=== PATIENT | male | born 1965 | race Caucasian/White ===

== ENCOUNTER 2018-12-20 09:36 | Day surgery (SDC) | payer BC, OTHER ==
[2018-12-18 11:12] VITALS: BMI 25.1
[~2018-12-20 09:36] MED LIST: LACTATED RINGERS 1,000 ML IV SCH
[2018-12-20 09:51] VITALS: RESP 18; TEMP 97.5
[2018-12-20] MEDS ORDERED: LIDOCAINE 1% 20 ML VIAL (10MG/ML) FOR IV START INTRADERMA ONE (09:51)
[2018-12-20] MEDS ORDERED: LACTATED RINGERS 1,000 ML IV ONE (09:51)
[2018-12-20] MEDS ORDERED: FAMOTIDINE 20 MG/2 ML VIAL IVP ONE (10:02)
[2018-12-20] MEDS ORDERED: PROPOFOL 10 MG/ML 20 ML VIAL IV ONE (10:56)
--- NOTE | 2018-12-20 11:04 | P.GSHP ---
History of Present Illness H&P Date: 12/20/18 Chief Complaint: Screening colonoscopy Is a 53-year-old male who presents today for screening colonoscopy. Patient previous history of diverticulosis. Past Medical History Past Medical History: No Reported History Additional Past Medical History / Comment(s): STATES BACK SPASMS., NIPPLES PIERCED. History of Any Multi-Drug Resistant Organisms: None Reported Past Surgical History: Orthopedic Surgery Additional Past Surgical History / Comment(s): ORIF RT ANKLE JAN 2015 Past Anesthesia/Blood Transfusion Reactions: No Reported Reaction Past Psychological History: No Psychological Hx Reported Smoking Status: Former smoker Past Alcohol Use History: Occasional Additional Past Alcohol Use History / Comment(s): QUIT SMOKING APPROX 1998 ,STARTED SMOKING 1979 Past Drug Use History: None Reported - Past Family History Brother(s) Family Medical History: Diabetes Mellitus Mother Family Medical History: Diabetes Mellitus Father Family Medical History: No Reported History Additional Family Medical History / Comment(s): . Medications and Allergies Home Medications Medication Instructions Recorded Confirmed Type Baclofen [Lioresal] 20 mg PO BID 12/18/18 12/18/18 History Celecoxib [CeleBREX] 200 mg PO DAILY 12/18/18 12/18/18 History Cyclobenzaprine [Flexeril] 10 mg PO HS 12/18/18 12/18/18 History Magnesium 400 mg PO DAILY 12/18/18 12/18/18 History Allergies Allergy/AdvReac Type Severity Reaction Status Date / Time No Known Allergies Allergy Verified 12/18/18 10:43 Surgical - Exam Vital Signs Temp Pulse Resp BP Pulse Ox 97.5 F L 72 18 148/91 98 12/20/18 09:50 12/20/18 09:50 12/20/18 09:50 12/20/18 09:50 12/20/18 09:50 - General well developed, well nourished, no distress - Eyes PERRL - ENT normal pinna - Neck no masses - Respiratory normal expansion - Cardiovascular Rhythm: regular - Abdomen Abdomen: soft, non tender Assessment and Plan Assessment: MrMadeleine diagnosis We'll perform screening colonoscopy.
--- NOTE | 2018-12-20 11:19 | P.OP ---
Date of Procedure: 12/20/18 Preoperative Diagnosis: Reading colonoscopy Postoperative Diagnosis: Diverticulosis Procedure(s) Performed: Colonoscopy Anesthesia: MAC Surgeon: Yehuda Duncan Pathology: none sent Condition: stable Disposition: PACU Operative Findings: The patient's placed on the endoscopy table in the lateral position and she received IV sedation. Digital rectal exam was performed which revealed no abnormalities. The flexible colonoscope was then placed patient anus passed rotator colon. The ileocecal valve was visualized. The cecum, ascending and transverse colon appeared normal. In the descending and; was mild diverticular changes. Scope was then brought back the rectum and this appeared normal. Scope was withdrawn for patient.
[2018-12-20 11:46] VITALS: BP 124/81; PULSE 70
== END 2018-12-20 12:22 | disposition home or self-care (01) ==
LOC: ORWHC2ENDO 09:36
PROVIDERS: ATTEND Surgery
DX: Z12.11 Encounter for screening for malignant neoplasm of colon (principal); K57.30 Diverticulosis of large intestine without perforation or abscess without bleeding; M62.830 Muscle spasm of back; Z87.891 Personal history of nicotine dependence; Z79.899 Other long term (current) drug therapy; Z83.3 Family history of diabetes mellitus
CPT/HCPCS: G0121; J2704

== ENCOUNTER 2022-09-04 18:19 | Emergency (ER) | payer BC ==
[2022-09-04 18:22] VITALS: BP 192/101; PULSE 73; RESP 16; TEMP 97.9
[2022-09-04] MEDS ORDERED: DIPH,PERTUS(ACELL)TETVAC-LF 0.5 ML VIAL IM ONE (18:38)
[2022-09-04] MEDS ORDERED: MORPHINE SULFATE 2 MG/ML SYRINGE IM ONE (18:38)
[2022-09-04] MEDS ORDERED: TRANEXAMIC ACID 1,000 MG/10 ML VIAL IRRIGATION ONE (18:41)
--- NOTE | 2022-09-04 19:03 | XR ---
EXAMINATION TYPE: XR hand complete LT DATE OF EXAM: 09/04/2022 6:52 PM INDICATION: Patient age:Male; 57 years old; Reason for study: L hand trauma; PHH. COMPARISON: None TECHNIQUE: Frontal, lateral and oblique views of the left hand were obtained. FINDINGS: The distal portion of the left second digit soft tissues is absent. Normal alignment of the visualized joints. No acute osseous pathology is identified. No radiopaque foreign body. IMPRESSION: 1. No acute osseous pathology. 2. Laceration of the left second digit distal aspect without evidence for fracture or radiopaque for eign body.
[2022-09-04] MEDS ORDERED: GELATIN SPONGE,ABSORB (LARGE) 1 EACH SPONGE TOPICAL STA (19:10)
--- NOTE | 2022-09-04 19:11 | ED ---
General Adult HPI - General Chief complaint: Wound/Laceration Stated complaint: lt hand finger laceration Time Seen by Provider: 09/04/22 18:30 Source: patient, RN notes reviewed Mode of arrival: ambulatory - History of Present Illness Initial comments: 57-year-old male with no significant past medical history presents the emergency department with a chief complaint of finger laceration. Patient reports that he was closing a Ziploc bag he and cut himself with a knife by accident left second digit. He is reporting increased pain and bleeding to the site. He denies any numbness, tingling, weakness to the area. He denies any anticoagulant use. She is not up-to-date on his tetanus vaccination. - Related Data Home Medications Medication Instructions Recorded Confirmed Baclofen [Lioresal] 20 mg PO BID 12/18/18 12/18/18 Celecoxib [CeleBREX] 200 mg PO DAILY 12/18/18 12/18/18 Cyclobenzaprine [Flexeril] 10 mg PO HS 12/18/18 12/18/18 Magnesium 400 mg PO DAILY 12/18/18 12/18/18 Previous Rx's Medication Instructions Recorded Cephalexin [Keflex] 500 mg PO Q6HR 7 Days #28 cap 09/04/21 Ibuprofen [Motrin] 400 mg PO Q6HR PRN #30 tab 09/04/22 Allergies Allergy/AdvReac Type Severity Reaction Status Date / Time No Known Allergies Allergy Verified 09/04/22 18:22 Review of Systems ROS Statement: Those systems with pertinent positive or pertinent negative responses have been documented in the HPI. ROS Other: All systems not noted in ROS Statement are negative. Past Medical History Past Medical History: No Reported History Additional Past Medical History / Comment(s): STATES BACK SPASMS., NIPPLES PIERCED. History of Any Multi-Drug Resistant Organisms: None Reported Past Surgical History: Orthopedic Surgery Additional Past Surgical History / Comment(s): ORIF RT ANKLE JAN 2015 Past Anesthesia/Blood Transfusion Reactions: No Reported Reaction Past Psychological History: No Psychological Hx Reported Smoking Status: Never smoker Past Alcohol Use History: Occasional Past Drug Use History: None Reported - Past Family History Brother(s) Family Medical History: Diabetes Mellitus Mother Family Medical History: Diabetes Mellitus Father Family Medical History: No Reported History Additional Family Medical History / Comment(s): . General Exam General appearance: alert, in no apparent distress Head exam: Present: atraumatic, normocephalic, normal inspection Eye exam: Present: normal appearance, PERRL, EOMI. Absent: scleral icterus, conjunctival injection, periorbital swelling ENT exam: Present: normal exam, mucous membranes moist Neck exam: Present: normal inspection. Absent: tenderness, meningismus, lymphadenopathy Respiratory exam: Present: normal lung sounds bilaterally. Absent: respiratory distress, wheezes, rales, rhonchi, stridor Cardiovascular Exam: Present: regular rate, normal rhythm, normal heart sounds. Absent: systolic murmur, diastolic murmur, rubs, gallop, clicks GI/Abdominal exam: Present: soft, normal bowel sounds. Absent: distended, tenderness, guarding, rebound, rigid Extremities exam: Present: normal inspection, full ROM, normal capillary refill. Absent: tenderness, pedal edema, joint swelling, calf tenderness Left Hand L/R Front: 1 - laceration (1 cm superficial laceration with active bleeding for range of motion, it is tender to palpation no crepitus noted) Vascular: Present: normal capillary refill. Absent: vascular compromise Back exam: Present: normal inspection Neurological exam: Present: alert, oriented X3, CN II-XII intact Psychiatric exam: Present: normal affect, normal mood Skin exam: Present: warm, dry, intact, normal color. Absent: rash Course Vital Signs 09/04/22 18:20 Temperature 97.9 F Pulse Rate 73 Respiratory 16 Rate Blood Pressure 192/101 O2 Sat by Pulse 98 Oximetry Medical Decision Making - Medical Decision Making Was pt. sent in by a medical professional or institution (, PA, SPINNING FRAME FIXER, urgent care, hospital, or assisted...) When possible be specific @ -[No] Did you speak to anyone other than the patient for history (EMS, parent, family, police, friend...)? What history was obtained from this source @ -[No] Did you review nursing and triage notes (agree or disagree)? Why? @ -[I reviewed and agree with nursing and triage notes] Were old charts reviewed (outside hosp., previous admission, EMS record, old EKG, old radiological studies, urgent care reports/EKG's, assisted records)? Report findings @ -[No old charts were reviewed] Differential Diagnosis (chest pain, altered mental status, abdominal pain women, abdominal pain men, vaginal bleeding, weakness, fever, dyspnea, syncope, headache, dizziness, GI bleed, back pain, seizure, CVA, palpatations, mental health, musculoskeletal)? @ -[not applicable] EKG interpreted by me (3pts min.). @ -[As above] X-rays interpreted by me (1pt min.). @ -[None done] CT interpreted by me (1pt min.). @ -[None done] U/S interpreted by me (1pt. min.). @ -[None done] What testing was considered but not performed or refused? (CT, X-rays, U/S, labs)? Why? @ -[None] What meds were considered but not given or refused? Why? @ -[None] Did you discuss the management of the patient with other professionals (professionals i.e. , PA, SPINNING FRAME FIXER, lab, RT, psych nurse, web content & social media manager, magneto electrician, teacher, senior administrative services officer, spring encaser)? Give summary @ -[No] Was smoking cessation discussed for >3mins.? @ -[No] Was critical care preformed (if so, how long)? @ -[No] Were there social determinants of health that impacted care today? How? (Homelessness, low income, unemployed, alcoholism, drug addiction, transportation, low edu. Level, literacy, decrease access to med. care, fdc, rehab)? @ -[No] Was there de-escalation of care discussed even if they declined (Discuss DNR or withdrawal of care, Hospice)? DNR status @ -[No] What co-morbidities impacted this encounter? (DM, HTN, Smoking, COPD, CAD, Cancer, CVA, ARF, Chemo, Hep., AIDS, mental health diagnosis, sleep apnea, morbid obesity)? @ -[None] Was patient admitted / discharged? Hospital course, mention meds given and ro nikolski, prescriptions, significant lab abnormalities, going to OR and other pertinent info. @ -Discharged. This is a 57 year male who presents to the emergency department with finger laceration. Patient had a thorough history and physical exam performed physical exam is essentially unremarkable heart rate regular rate and rhythm, lungs clear to auscultation bilaterally abdomen is soft and non- tender. Left second digit with superficial laceration. Patient soaked finger in T x-ray. He was given Gelfoam and tube gauze dressing. He was given morphine and tetanus vaccination with symptomatic relief in the ED. I discussed results in detail with the patient's mother who verbalized understanding and all questions were addressed. Return precautions were discussed at length. She was encouraged to follow up with her boat carpenter mechanic in 1-2 days. Case discussed with PATY Rao who agrees with plan of care Undiagnosed new problem with uncertain prognosis? @ -[No] Drug Therapy requiring intensive monitoring for toxicity (Heparin, Nitro, Insulin, Cardizem)? @ -[No] Were any procedures done? @ -[No] Diagnosis/symptom? @ -finger laceration Acute, or Chronic, or Acute on Chronic? @ -acute Uncomplicated (without systemic symptoms) or Complicated (systemic symptoms)? @ -uncomplicated Side effects of treatment? @ -[No] Exacerbation, Progression, or Severe Exacerbation? @ -[No] Poses a threat to life or bodily function? How? (Chest pain, [place], [place], pneumonia, PE, COPD, DKA, ARF, appy, cholecystitis, CVA, Diverticulitis, Homicidal, Borja icidal, threat to staff... and all critical care pts) @ -low likelihood Disposition Clinical Impression: Laceration Disposition: HOME SELF-CARE Condition: Stable Instructions (If sedation given, give patient instructions): Laceration (ED), Finger Laceration (ED) Additional Instructions: Please return to the nearest emergency department if symptoms worsen or persist Prescriptions: Ibuprofen [Motrin] 400 mg PO Q6HR PRN #30 tab PRN Reason: Pain Is patient prescribed a controlled substance at d/c from ED?: No Referrals: Caro Griffith DO [Primary Care Provider] - 1-2 days Time of Disposition: 19:11
== END 2022-09-04 20:11 | disposition home or self-care (01) ==
LOC: EC 18:19
DX: S61.211A Laceration without foreign body of left index finger without damage to nail, initial encounter (principal); Z23 Encounter for immunization; W26.0XXA Contact with knife, initial encounter
CPT/HCPCS: 99283; 90471; 96372; 12001; 73130; 90715; J2270

== ENCOUNTER → 2023-05-17 | Outpatient (CLI) | payer BC ==
--- NOTE | 2023-05-17 11:04 | CT ---
EXAMINATION TYPE: CT pelvis w con DATE OF EXAM: 05/17/2023 COMPARISON: NONE HISTORY: 57-year-old male [id number], right-sided inguinal pain TECHNIQUE: Contiguous axial scanning of the pelvis following administration of 100 ml Isovue 300 IV c ontrast. Delayed images through the bladder and coronal/sagittal reconstructions performed. CT DLP: 228.97 mGycm Automated exposure control for dose reduction was used. FINDINGS: No dilated small bowel. Oral contrast progressed into the transverse colon. There is sigmoid divertic ulosis without pericolic inflammatory change. Normal appendix. Moderate scattered stool. Retroaortic left renal vein. Partially visualized left renal cysts measuring up to 1.8 cm. No lower abdominal or pelvic adenopathy is seen. There is mild circumferential bladder wall thickening. Prostatomegaly at 5.0 cm wide with enhancing n odularity impressing into the midline base of the bladder measuring 1.4 cm, axial image 40 and schuster l image 53. No abnormal fluid collection in the pelvis or pelvic lymphadenopathy. No sizable inguinal or femoral canal hernia is identified. There is a oval fat density area within the right gluteus shauna measuring 4.8 x 2.3 cm. No internal soft tissue complexity is seen. Findings suggest an intramuscular lipoma. Bones: Moderate degenerative disc disease L5-S1 with facet arthropathy lower lumbar spine. IMPRESSION: 1. NO SIZABLE INGUINAL OR FEMORAL CANAL HERNIA IDENTIFIED. 2. PROSTATOMEGALY AT 5.0 CM. THERE IS A NODULAR ENHANCING FOCUS ALONG THE MIDLINE PROSTATE GLAND IMPR ESSING INTO THE BLADDER BASE MEASURING 1.4 CM, LIKELY MEDIAN LOBE HYPERTROPHY/BPH. CORRELATE WITH PSA VALUES AND PATIENT'S SYMPTOMS. 3. MILD CIRCUMFERENTIAL BLADDER WALL THICKENING LIKELY CHRONIC FOR THE PATIENT. 4. INCIDENTAL 4.8 CM INTRAMUSCULAR LIPOMA RIGHT GLUTEUS SHAUNA. 5. SIGMOID DIVERTICULOSIS WITHOUT ACUTE DIVERTICULITIS.
== END | disposition home or self-care (01) ==
LOC: RADCTMAIN 06:34
PROVIDERS: ATTEND Surgery
DX: K57.30 Diverticulosis of large intestine without perforation or abscess without bleeding (principal); N32.89 Other specified disorders of bladder; N40.0 Benign prostatic hyperplasia without lower urinary tract symptoms; K40.90 Unilateral inguinal hernia, without obstruction or gangrene, not specified as recurrent
CPT/HCPCS: 72193; Q9967

== ENCOUNTER → 2024-10-02 | Outpatient (CLI) | payer BC ==
--- NOTE | 2024-10-02 18:29 | MR ---
EXAMINATION TYPE: MR Prostate wo/w con DATE OF EXAM: 10/02/2024 6:01 PM COMPARISON: CT pelvis. CLINICAL INDICATION: Male, 59 years old with history of R97.20 ELEVATED PROSTATE SPECIFIC ANTIGEN [PS A]; Elevated PSA, TECHNIQUE: Multi-planar, multi-sequence imaging of the pelvis is performed prior to and following the uncomplicated administration of bolus intravenous gadolinium. IV Contrast: 8.5 mL Gadavist Interpretive Criteria: PI-RADS v2.1 SERUM PSA: 09-05-2024 15.2 09-15-2021 4.090 SURGICAL PATHOLOGY: No data available. FINDINGS: Prostatic dimensions: 5.3 x 5.7 x 4.1 cm. Ellipsoid Volume:64.85 (PSA density=0.00 ng/mL/mL) CENTRAL GLAND (Central and Transition Zones/CZ+TZ): Multiple bilateral, heterogenous appearing hypertrophic stromal nodules, without suspicious lesion. M edian lobe hypertrophy with protrusion into the base of the bladder. (PI-RADS 2) PERIPHERAL ZONE (PZ): Bilateral linear, indistinct wedgelike areas of low ADC, and low T2 signal, No evidence of masslike a bnormality, or localized perfusional hypervascularity, to further suggest a focus of clinically signi ficant prostate cancer. (PI-RADS 2) SEMINAL VESICLES (SV): Symmetric and unremarkable. PERIPROSTATIC TISSUES: Unremarkable. LYMPH NODES: No enlarged pelvic lymph node. REMAINING PELVIS: Bladder wall is within normal limits given distention. No abnormal free or organized intrapelvic fluid collection. No pathologic bowel dilation or mural thickening. Colonic diverticula are present. No hernia visualized OSSEOUS STRUCTURES: No suspicious osseous abnormality. IMPRESSION: 1. No specific features for high-risk prostate cancer. Maximum PI-RADS score: 2. 2. Moderate BPH, estimated gland volume 64.85 (PSA density=0.00 ng/mL/mL) 3. No suspicious osseous lesion. No lymphadenopathy. No evidence of prostate adenocarcinoma involving the periprostatic tissues. [facility], , 10/02/2024 6:26 PM
== END | disposition home or self-care (01) ==
LOC: RADMRIMAIN 16:20
PROVIDERS: ATTEND Family Medicine
DX: N40.0 Benign prostatic hyperplasia without lower urinary tract symptoms (principal); R97.20 Elevated prostate specific antigen [PSA]
CPT/HCPCS: 72197; A9585